=== PATIENT | female | born 1995 | race Caucasian/White ===

== ENCOUNTER 2021-12-12 21:46 | Inpatient (IN) | payer BC, SELFPAY ==
[2021-12-12] VITALS (18 sets, daily range): BP systolic 136–165; BP diastolic 82–97; PULSE 83–110; RESP 16–18; BMI 32.8
[2021-12-12 18:48] LABS: Urine Creatinine 188 mg/dL (28-217)
[2021-12-12 18:54] LABS: UPRO/UCREAT Ratio 0.22 mg/mg CR; Urine Protein Random 41 mg/dL
[2021-12-12 20:33] LABS: Basophils % 0.4 %; Eosinophils # 0.3 10^3/uL (0.0-0.8); Eosinophils % 2.3 %; Hematocrit 36.7 % (37.0-47.0); Hemoglobin 12.3 g/dL (11.5-15.3); Lymphocytes # 1.5 10^3/uL (0.8-4.8); Lymphocytes % 13.3 %; Mean Corpuscular HGB Conc 33.5 g/dL (30.0-36.0); Mean Corpuscular Volume 86.6 fl (81-99); Mean Platelet Volume 11.6 fL (7.4-10.4); Monocytes # 0.9 10^3/uL (0.2-0.9); Monocytes % 7.7 %; Neutrophils # 8.42 10^3/uL (1.8-7.7); Neutrophils % 75.7 %; Nucleated Red Blood Cells % 0 %; Platelet Count 178 10^3/cmm (130-400); Red Blood Count 4.24 10^6/uL (4.1-5.3); Red Cell Distribution Width 13.4 % (12.1-15.1); White Blood Count 11.1 10^3/uL (4.0-10.0)
[2021-12-12] MEDS: dextrose 5%-lactated ringers 1,000 ML 125 ML IV (20:38)
[2021-12-12] MEDS: miSOPROStol 100 mcg tablet 25 MCG VAGINAL (21:00)
[2021-12-12 23:05] LABS: Adenovirus Not Detected (NOT DETECT); Chlamydia Pneumoniae Not Detected (NOT DETECT); Coronavirus 229E,HKU1,NL63,OC4 Not Detected (NOT DETECT); Human Metapneumovirus Not Detected (NOT DETECT); Human Rhinovirus/Enterovirus Not Detected (NOT DETECT); Influenza A Not Detected (NOT DETECT); Influenza A H1 Not Detected (NOT DETECT); Influenza A H1-2009 Not Detected (NOT DETECT); Influenza A H3 Not Detected (NOT DETECT); Influenza B Not Detected (NOT DETECT); Mycoplasma Pneumoniae Not Detected (NOT DETECT); Parainfluenza Virus Type 1 Not Detected (NOT DETECT); Parainfluenza Virus Type 2 Not Detected (NOT DETECT); Parainfluenza Virus Type 3 Not Detected (NOT DETECT); Parainfluenza Virus Type 4 Not Detected (NOT DETECT); Respiratory Syncytial Virus A Not Detected (NOT DETECT); Respiratory Syncytial Virus B Not Detected (NOT DETECT); SARS-COV-2 Not Detected (NOT DETECT)
[2021-12-13] VITALS (176 sets, daily range): BP systolic 98–211; BP diastolic 44–156; PULSE 62–114; RESP 15–18; TEMP 35.9–37.2; O2SAT 95–100
[2021-12-13] MEDS: miSOPROStol 100 mcg tablet 25 MCG VAGINAL (01:36)
[2021-12-13] MEDS: morphine 4 mg/mL SDV 1 mL 8 MG IM (01:37)
[2021-12-13] MEDS: promethazine 25 mg/mL SDV 1 mL IM (01:37)
[2021-12-13] MEDS: dextrose 5%-lactated ringers 1,000 ML 125 ML IV ×2 (04:52→19:44)
[2021-12-13] MEDS: fentaNYL 50 mcg/mL INJ 2mL IVP ×3 (10:31→13:08)
[2021-12-13] MEDS: oxytocin 30 UNIT/500 ML BAG IV (11:00)
[2021-12-13] MEDS: labetalol 5 mg/mL SDV 20mL 20 MG IVP ×2 (12:01→16:33)
[2021-12-13] MEDS: labetalol 5 mg/mL SDV 20mL 40 MG IVP ×2 (12:20→16:45)
--- NOTE | 2021-12-13 13:11 | ANES.PAUD2 ---
Pre-Anesthetic Update Pre-Anesthetic Assessment: Date of Surgery/Procedure: 12/13/21 Any changes to Pre-Anesthetic Assessment?: No Labs Last 48hrs: Short CBC 12/12/21 Range/Units 17:50 WBC 11.1 H (4.0-10.0) 10^3/ uL Hgb 12.3 (11.5-15.3) g/dL Hct 36.7 L (37.0-47.0) % MCV 86.6 (81-99) fl Plt Count 178 (130-400) 10^3/c mm Neut % (Auto) 75.7 % Neut # (Auto) 8.42 H (1.8-7.7) 10^3/u L COVID Results 12/12/21 21:10 Coronavirus 229E ( PCR) Not detected SARS-CoV-2 (PCR) Not detected Vitals: Temperature 98.1 F 12/13/21 11:30 Temperature Source Tympanic 12/13/21 11:30 Pulse Rate 72 12/13/21 13:01 Pulse Rhythm 12/12/21 20:00 Pulse Strength 3+ Normal 12/12/21 20:00 Respiratory Rate 17 12/13/21 13:08 Respiratory Effort 12/13/21 13:08 Respiratory Depth Normal 12/13/21 13:08 Respiratory Patter n 12/13/21 13:08 Blood Pressure 140/81 12/13/21 13:01 Pulse Oximetry 97 12/13/21 05:54 Oxygen Delivery Me thod 12/12/21 20:00 Exam: Pre-Anes Outpt Exam: alert, oriented x 3, clear to auscultation bilaterally and regular rate & rhythm Cardiac Studies: No Data to Display
[2021-12-13] MEDS: lactated ringers 1,000 ML 999 ML IV ×2 (13:17→16:40)
--- NOTE | 2021-12-13 15:05 | ANES.PROC ---
Anesthesia Procedures Procedure/Date: 12/13/21 Epidural: Time Out Performed: Yes Consents Signed: Procedure Consent Consent: from patient Lumbar Level: L4-L5 Epidural position: sitting Epidural procedure: sterile prep of area, 1% lidocaine to numb the area, 18 g needle, negative for paresthesia passed, neg for paresthesia, test dose given, 1.5% xylocaine 1:200k epi (3 ml), placed PCEA, no systemic response, sterile dressing applied and 0.2% Ropiavacaine @ mls/hr (13) Additional Comments: Cap, mask donned by all staff in room. Patient sat up. Patient prepped and draped in usual sterile fashion with Chlorprep. 1% lidocaine skin wheel. Tuohy inserted with stylet. Ligament engaged. Using DAREK w/ saline technique epidural space found, catheter threaded. Positive aspiration. Keeping sterile field catheter flushed with sterile saline. Returning to previously anesthetized site Tuohy inserted with stylet. Ligament engaged. Using DAREK w/ saline technique epidural space found, catheter threaded. Negative aspiration. Test dose 1.5% lidocaine with epinenephrine 1:200,000 total 3 cc. No response. Sterile dressing. Infusion started. Loss at 5 , catheter at 11 . Tolerated well, 1 attempted, good block.
[2021-12-13] MEDS: magnesium sulfate premix 4 GM/100 ML PREMIX IV (16:10)
[2021-12-13 16:11] LABS: Add Urine Microscopic? NO; Charge for UA Resulting for Rev
[2021-12-13 16:16] LABS: Basophils # 0.1 10^3/uL (0.0-0.1); Basophils % 0.4 %; Eosinophils # 0.2 10^3/uL (0.0-0.8); Eosinophils % 1.5 %; Hematocrit 37.1 % (37.0-47.0); Hemoglobin 12.2 g/dL (11.5-15.3); Lymphocytes # 1.3 10^3/uL (0.8-4.8); Lymphocytes % 9.9 %; Mean Corpuscular HGB Conc 32.9 g/dL (30.0-36.0); Mean Corpuscular Hemoglobin 28.8 pg (28.0-34.0); Mean Corpuscular Volume 87.7 fl (81-99); Mean Platelet Volume 11.5 fL (7.4-10.4); Neutrophils # 10.99 10^3/uL (1.8-7.7); Neutrophils % 80.7 %; Nucleated Red Blood Cells % 0 %; Platelet Count 152 10^3/cmm (130-400); Red Blood Count 4.23 10^6/uL (4.1-5.3); Red Cell Distribution Width 13.4 % (12.1-15.1); White Blood Count 13.6 10^3/uL (4.0-10.0)
[2021-12-13 16:25] LABS: Bilirubin Urine Neg (Negative); Blood Urine Neg (Negative); Glucose Urine UA Norm (Normal); Ketones Urine Negative (Negative); Leukocyte Esterase Urine Negative (Negative); Nitrate Urine Negative (Negative); Protein Urine Neg (Negative); Specific Gravity, Urine 1.005 (1.005-1.030); Urine Appearance Clear (CLEAR); Urine Color Straw (Yellow); Urobilinogen Urine Norm (Negative); pH Urine 7 (5-7)
[2021-12-13] MEDS: ondansetron 2 mg/ML SDV 2 mL 4 MG IVP (16:28)
[2021-12-13 16:49] LABS: Urine Creatinine 61 mg/dL (28-217); Urine Protein Random 13 mg/dL
[2021-12-13 16:51] LABS: UPRO/UCREAT Ratio 0.21 mg/mg CR
[2021-12-13 16:56] LABS: Alanine Aminotransferase 27 U/L (0-33); Albumin Level 3.2 g/dL (3.5-5.2); Alkaline Phosphatase 179 IU/L (35-105); Blood Urea Nitrogen 8 mg/dL (6-20); Calcium 8.8 mg/dL (8.5-10.5); Carbon Dioxide 19 mmol/L (22-29); Chloride 106 mmol/L (98-107); Globulin 2.8 g/dL (1.3-4.6); Glomerular Filtration Rate 149.1 mL/min (90-130); Glucose 89 mg/dL (65-115); Osmolality Calculated 280 mOsm/kg (285-295); Sodium 136 mmol/L (136-145); Total Bilirubin 0.2 mg/dL (0.15-1.2); Uric Acid 3.9 mg/dL (2.4-5.7)
[2021-12-13 16:58] LABS: Anion Gap 15.4 (5-19); Aspartate Amino Transferase 27 U/L (0-32); Potassium 4.4 mmol/L (3.5-5.1)
[2021-12-13] MEDS: citric acid-sodium citrate 30 mL UDC PO (16:58)
[2021-12-13] MEDS: metoclopramide 5 mg/mL SDV 2 mL 10 MG IVP (16:59)
[2021-12-13] MEDS: famotidine 20 mg/2 mL INJ IVP (16:59)
[2021-12-13] MEDS: magnesium sulfate premix 20 GM/500 ML BAG IV (16:59)
--- NOTE | 2021-12-13 17:49 | P.ANESASSM_ITS ---
Pre-Anesthetic Assessment Height/Weight: Height 1.6 m Weight 83.915 kg Temp Pulse Resp BP Pulse Ox 96.6 F L 103 H 17 174/100 100 12/13/21 16:18 12/13/21 16:59 12/13/21 16:14 12/13/21 16:59 12/13/21 16:59 emergency c section for decles with pre eclampsia w/ severe features Anesthetic Plan ASA status: 2E Other: Late entry due to emergency circumstances Medications/Allergies Allergies Allergy/AdvReac Type Severity Reaction Status Date / Time No Known Allergies Allergy Verified 12/13/21 11:57 Current Medications Generic Name Dose Route Start Last Admin Trade Name Freq PRN Reason Stop Dose Admin Fentanyl 25 - 100 mcg 12/12/21 18:58 12/13/21 13:08 Fentanyl 50 Mcg/Ml Inj 2ml IVP 75 mcg Q1H PRN Administration SEVERE PAIN Dextrose/Lactated Ringer's 1,000 mls @ 125 mls/hr 12/12/21 19:00 12/13/21 04:52 Dextrose 5%-Lactated Ringers IV 125 mls/hr .Q8H AJ Administration Lactated Ringer's 1,000 mls @ 999 mls/hr 12/12/21 18:58 12/13/21 16:40 Lactated Ringers IV 999 mls/hr .Q1H1M PRN Administration Per L&D Rescitation Protocol Oxytocin 30 unit in 500 mls @ 1 mls/hr 12/13/21 10:45 12/13/21 16:15 Pitocin IV 11 milliunit/min .Q24H AJ 11 mls/hr Titration Protocol 1 MILLIUNIT/MIN Ropivacaine 200 mg in 100 mls @ 13 mls/hr 12/13/21 12:30 12/13/21 13:36 Naropin Premix EPIDURAL 13 mls/hr .Q7H42M AJ Administration Lactated Ringer's 1,000 mls @ 999 mls/hr 12/13/21 12:25 12/13/21 13:17 Lactated Ringers IV 999 mls/hr .Q1H1M PRN Administration See label comments Magnesium Sulfate 20 gm in 500 mls @ 50 mls/hr 12/13/21 15:45 12/13/21 16:59 Magnesium Sulfate Premix IV 50 mls/hr .Q10H AJ Administration Labetalol HCl 20 mg 12/13/21 11:55 12/13/21 16:33 Labetalol 5 Mg/Ml Sdv 20ml IVP 20 mg PRN PRN Administration HYPERTENSION Protocol Labetalol HCl 40 mg 12/13/21 11:55 12/13/21 16:45 Labetalol 5 Mg/Ml Sdv 20ml IVP 40 mg PRN PRN Administration HYPERTENSION Protocol Ondansetron HCl 4 mg 12/12/21 18:58 12/13/21 16:28 Ondansetron 2 Mg/Ml Sdv 2 Ml IVP 4 mg Q4H PRN Administration NAUSEA AND VOMITING PFSH Anesthesia Female Reproductive History : 1 Data Anesthesia : 12/13/21 15:40 12/13/21 15:40 Short CBC 12/12/21 12/13/21 Range/Units 17:50 15:40 WBC 11.1 H 13.6 H (4.0-10.0) 10^3/uL Hgb 12.3 12.2 (11.5-15.3) g/dL Hct 36.7 L 37.1 (37.0-47.0) % MCV 86.6 87.7 (81-99) fl Plt Count 178 152 (130-400) 10^3/cmm Neut % (Auto) 75.7 80.7 % Neut # (Auto) 8.42 H 10.99 H (1.8-7.7) 10^3/uL BMP 12/13/21 15:40 Sodium 136 Potassium 4.4 Chloride 106 Carbon Dioxide 19 L BUN 8 Creatinine 0.5 Glucose 89 Calcium 8.8 Liver Function 12/13/21 Range/Units 15:40 Total Bilirubin 0.2 (0.15-1.2) mg/dL AST 27 (0-32) U/L ALT 27 (0-33) U/L Alkaline Phosphatase 179 H (35-105) IU/L Albumin 3.2 L (3.5-5.2) g/dL Urine 12/13/21 Range/Units 15:40 Urine Color Straw (Yellow) Urine Appearance Clear (CLEAR) Urine pH 7 (5-7) Ur Specific [place] 1.005 (1.005-1.030) Urine Protein Neg (Negative) Urine Glucose (UA) Norm (Normal) Urine Ketones Negative (Negative) Urine Nitrate Negative (Negative) Urine Bilirubin Neg (Negative) Ur Leukocyte Esterase Negative (Negative) COVID Results 12/12/21 21:10 Coronavirus 229E (PCR) Not detected SARS-CoV-2 (PCR) Not detected Cardiac Studies: No Data to Display
--- NOTE | 2021-12-13 17:51 | ANES.PROC ---
Anesthesia Procedures Procedure/Date: 12/13/21 Time out 1710 Procedure Narrative: Patient in sitting position. Full monitors, simpe mask 10 LPM. Time out. Cap, mask donned by all staff present. Sterile prep w/ Chlorprep. Drape. 1% lidocaine skin wheel. Introducer. 25 g Pencan, + birefringence, no heme. 1.6 ml 0.75% bupivacaine w/ dextrose with 0.2 mg PF morphine and 20 mcg PF fentanyl. Tolerated well. Good block.
--- NOTE | 2021-12-13 18:46 | PM.OPHPUD ---
Labor & Delivery H&P Update Date of Procedure: December 13, 2021 Date H&P Performed: 12/12/21 Changes to previous documentation: None Admission Diagnosis: Primary indication for procedure: 26-year-old one at 38 weeks estimated gestational age presented to the hospital for induction due to gestational hypertension Planned procedure: Spontaneous vaginal delivery Other information: The patient is a otherwise healthy 26-year-old female who presented to the hospital due to having elevated blood pressures. In the office she was found to have systolic blood pressures greater than 140. She was sent to the hospital where she was also found to have systolic blood pressures greater than 140. Her protein creatinine ratio was found to be negative. She was having no other significant symptoms of preeclampsia. She was induced with Cytotec. Her had otherwise been relatively unremarkable. Her labs were as follows her blood type was B+. Her antibody screen was negative. Her glucose screen was negative. She is rubella immune. Her Tdap was performed. Her GBS status was negative as well. The remainder of her labs were within normal limits. Related Problem List Diagnoses (1) 38 weeks gestation of : (2) Gestational hypertension:
--- NOTE | 2021-12-13 18:49 | P.OP_ITS ---
Operative Report Date of procedure: December 13, 2021 Pre-op diagnosis: 1. 26-year-old one at 38 weeks estimated gestational age 2. Failure to progress 3. Preeclampsia Post-op diagnosis: Same Procedure done: Low transverse section Specimens removed/disposition: 1. Male infant with a weight of 5 pounds 13 ounces and Apgars of 6 and 9 2. Placenta with a three-vessel cord delivered intact Pathology: None Surgeon: Reji Lindquist Estimated blood loss: 600 Complications: None Brief History: The patient presented to the hospital the night prior to the . She was induced because of gestational hypertension. Despite having Cytotec x2, and amniotomy, Pitocin, she made no change for 12 hours. In addition she was having increasingly worsening blood pressures that required labetalol. Magnesium was initiated. Due to her lack of progress, the decision was made to proceed with a section Procedure: The patient was brought back to the operating room where she was prepped and draped in usual sterile fashion. Anesthesia was found to be adequate. 20 cc of 0.5 bupivacaine were infused into the site of the incision. lower transverse skin incision was then made with a #10 blade. I then dissected down to the underlying subcutaneous tissue until arriving at the prerectal fascia. The fascia was then nicked with the scalpel bilaterally. The fascial incisions were then carried laterally with Basurto scissors. Attention was then turned to the superior aspect of the incision which was grasped with kochers and tented up away from the underlying rectus abdominis muscles. The muscles were then dis sected away from the fascia manually, and later with Basurto scissors. Attention was then turned to the inferior aspect of the incision, and the fascia was dissected away from the underlying muscle in similar fashion. The rectus abdominis muscles were then spread manually. The peritoneum was entered manually. Excellent visualization of the uterus was noted. A lower transverse uterine incision was then made with a #10 blade. Upon arriving at the intrauterine cavity, the uterine incision was then extended manually. The was noted to be in vertex position. The baby was delivered without difficulty. After delivery of the head, the mouth and nose were suctioned at the site of the incision. There was no meconium. There was no nuchal cord. The baby was then delivered and placed on the abdomen. The cord was cut and clamped. The baby was then handed to Dr. Su and nurse who were waiting The placenta was removed intact. The uterus was externalized. The intrauterine cavity was cleansed of any remaining debris. The uterine incision was reapproximated in 2 layers. The first layer was performed with 0 Vicryl in a running locked stitch. The second layer was an imbricating stitch also using 0 Vicryl. The uterus was replaced into the abdomen. The peritoneum was then irrigated with warm saline. I reexamined the uterine incision and found it to be hemostatic. The rectus abdominis muscles were then reapproximated using 0 Vicryl in a running stitch. The fascia was then reapproximated using 0 Vicryl in running stitch. The subcutaneous tissue was then reapproximated using 0 Vicryl. The skin was reapproximated using addie. A sterile dressing was placed. All counts were correct x2. Both the mother and baby were in stable condition.
--- NOTE | 2021-12-13 19:45 | PC.NURSE ---
Anesthesia removed epidural in OR prior to spinal.
--- NOTE | 2021-12-13 20:42 | ANE.PACU2 ---
Inpatient post-anesthesia follow up: Airway intact: Yes Vital signs: Temperature 96.6 F Pulse Rate 103 Respiratory Rate 17 Blood Pressure 174/100 Pulse Oximetry 100 Oxygen Delivery Me thod Room Air Oxygen Flow Rate Fraction of Inspir ed Oxygen Hydration adequate: Yes Nausea and vomiting: No Pain level: 5 Mental status: Baseline
[2021-12-14] VITALS (22 sets, daily range): BP systolic 113–143; BP diastolic 72–98; PULSE 76–99; RESP 16–18; TEMP 36.7–36.9; O2SAT 94–98
[2021-12-14] MEDS: magnesium sulfate premix 20 GM/500 ML BAG IV ×2 (02:45→13:06)
[2021-12-14] MEDS: morphine 4 mg/mL SDV 1 mL IVP (04:24)
[2021-12-14 05:33] LABS: Basophils % 0.3 %; Eosinophils # 0.1 10^3/uL (0.0-0.8); Eosinophils % 0.5 %; Hematocrit 33.2 % (37.0-47.0); Hemoglobin 10.9 g/dL (11.5-15.3); Lymphocytes % 8.5 %; Mean Corpuscular HGB Conc 32.8 g/dL (30.0-36.0); Mean Corpuscular Hemoglobin 28.8 pg (28.0-34.0); Mean Corpuscular Volume 87.8 fl (81-99); Monocytes # 0.8 10^3/uL (0.2-0.9); Neutrophils # 10.01 10^3/uL (1.8-7.7); Neutrophils % 83.4 %; Nucleated Red Blood Cells % 0 %; Platelet Count 149 10^3/cmm (130-400); Red Blood Count 3.78 10^6/uL (4.1-5.3); Red Cell Distribution Width 13.9 % (12.1-15.1)
--- NOTE | 2021-12-14 06:49 | PM.OBGYPN ---
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 She will be continued on magnesium until 24 hours . Her urine output has been appropriate. Her bleeding has been minimal. Her pain is been reasonably well controlled. She is breast-feeding well. Labor: Station: -3 Amniotic Membrane Status: Leaking Monitor Mode: Palpation Contraction Pattern: Regular Status: Category I Vitals/I&O/Wt Last Vital Signs Temp 98.5 F 12/14/21 05:39 Pulse 90 12/14/21 05:39 Resp 16 12/14/21 05:39 BP 121/77 12/14/21 05:39 Pulse Ox 96 12/14/21 05:39 12/13/21 12/13/21 12/14/21 14:59 22:59 06:59 Intake Total 14.50 / 14.50 4028.50 / 4043.00 Output Total 1940 / 1940 1285 / 3225 Balance 14.50 / 14.50 2088.50 / 2103.00 -1285 / 818.00 Weight last 48 hrs Weight 185 lb Weight 185 lb Physical Exam Narrative: The patient is alert. She appears comfortable. Her heart has a regular rate and rhythm with no murmurs appreciated. Lungs are clear to auscultation bilaterally. Her fundus is firm and below the umbilicus. Urinary Catheter Management: Srinivasan: Cath Placed During This Visit: yes Reason for Continuing Indwelling Catheter: Accurate Measurement of Urinary Output in Critically Ill Patients Urinary Catheter Date of Insertion: 12/13/21 Urinary Catheter Time of Insertion: 14:30 Data : 12/14/21 05:22 12/13/21 15:40 A&P Assessment and plan (1) Preeclampsia: She will be continued on magnesium for 24 hours post . Overall she is seems to be doing better. Her urine output has been appropriate. Status: Acute (2) 38 weeks gestation of : Status: Acute (3) Status post : Status: Acute Attestations Medical Necessity Statement*: I anticipate the patient will be going home in 1 to 2 days due to her post status and her preeclampsia. Coding Level of Care Code Acute Ultrasound Specialist for [facility] Kranthi Diagnoses Preeclampsia O14.90 38 weeks gestation of Z3A.38 Status post Z98.891
[2021-12-14] MEDS: HYDROcodone-acetaminophen 5-325 mg Tablet PO ×4 (07:55→20:01)
[2021-12-14] MEDS: dextrose 5%-lactated ringers 1,000 ML 75 ML IV (10:39)
[2021-12-14] MEDS: ondansetron 2 mg/ML SDV 2 mL 4 MG IVP (10:39)
--- NOTE | 2021-12-14 14:22 | PC.NURSE ---
Sat pt up in bed and instructed on how to use incentive spirometer. Pt had some expiratory wheezing and crackles in left lower lobe. O2 sat is 93%. Fist 3 repetitions volume was 1000mL. Instructed pt she should breathe deeper. Pt reached 2000 with next 3 repetitions. Pt had urge to cough but again refused. Nurse instructed pt that is is important to cough to prevent pneumonia. Splinted pt abdomen with pillow, pt shallow coughed. O2 went from 93% to 98% with deep breaths. Pt pulse did increase as well from 90s to low 100s. Instructed pt to use every hour. Pt verbalized understanding.
[2021-12-14] MEDS: acetaminophen 325 mg Tablet 650 MG PO (20:43)
[2021-12-15] MEDS: HYDROcodone-acetaminophen 5-325 mg Tablet PO ×4 (01:19→12:33)
[2021-12-15 04:30] VITALS: BP 142/85; PULSE 85; TEMP 36.6; O2SAT 97
[2021-12-15 08:00] VITALS: BP 156/104; PULSE 99; RESP 16; TEMP 36.8; O2SAT 96
[2021-12-15] MEDS: prenatal vitamin Capsule 1 CAP PO (08:17)
[2021-12-15] MEDS: docusate sodium 100 mg Capsule PO (08:17)
[2021-12-15 08:30] VITALS: BP 165/90; PULSE 85; RESP 16; O2SAT 96
[2021-12-15] MEDS: labetalol 200 mg Tablet 100 MG PO (09:24)
--- NOTE | 2021-12-15 09:46 | PM.OBGYDC ---
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 She was placed on Cytotec. An amniotomy was performed. Pitocin was initiated. Her blood pressure was intermittently elevated during her hospital stay. Her cervix did not change for about 12 hours. During that time her blood pressure became progressively more elevated. She started feeling worse and started having a headache. As result the decision was made to place the patient on magnesium and to proceed with a section. The was unremarkable. The patient's course was remarkable for not tolerating magnesium well. She was passing gas within about 24 hours. She continued to have a mild to moderate headache. She tolerated her diet well. She continued to have some elevated blood pressures, and oral labetalol was initiated. Information Peripartum Data: Infant Delivery Method: Physical Exam Narrative: She is in no acute distress The patient continues to be somewhat swollen. She does have trace to 1+ swelling in her lower extremities. Lungs are clear auscultation bilaterally Her heart has a regular rate and rhythm Her fundus is below the umbilicus and firm Her dressing is clean, dry and intact Her extremities have trace edema Urinary Catheter Management: Srinivasan: Cath Placed During This Visit: yes, but has since been removed by the nurse Reason for Continuing Indwelling Catheter: Accurate Measurement of Urinary Output in Critically Ill Patients Urinary Catheter Date of Insertion: 12/13/21 Urinary Catheter Time of Insertion: 14:30 Date Urinary Catheter Removed: 12/15/21 Time Urinary Catheter Discontinued: 01:20 Discharge Data Studies Completed and Pending Laboratory Results WBC 12.0 10^3/uL (4.0-10.0) H 12/14/21 05:22 RBC 3.78 10^6/uL (4.1-5.3) L 12/14/21 05:22 Hgb 10.9 g/dL (11.5-15.3) L 12/14/21 05:22 Hct 33.2 % (37.0-47.0) L 12/14/21 05:22 MCV 87.8 fl (81-99) 12/14/21 05:22 MCH 28.8 pg (28.0-34.0) 12/14/21 05:22 MCHC 32.8 g/dL (30.0-36.0) 12/14/21 05:22 RDW 13.9 % (12.1-15.1) 12/14/21 05:22 Plt Count 149 10^3/cmm (130-400) 12/14/21 05:22 MPV 11.0 fL (7.4-10.4) H 12/14/21 05:22 Neut % (Auto) 83.4 % 12/14/21 05:22 Lymph % (Auto) 8.5 % 12/14/21 05:22 [place] % (Auto) 7.0 % 12/14/21 05:22 Eos % (Auto) 0.5 % 12/14/21 05:22 Baso % (Auto) 0.3 % 12/14/21 05:22 Neut # (Auto) 10.01 10^3/uL (1.8-7.7) H 12/14/21 05: Lymph # (Auto) 1.0 10^3/uL (0.8-4.8) 12/14/21 05:22 [place] # (Auto) 0.8 10^3/uL (0.2-0.9) 12/14/21 05:22 Eos # (Auto) 0.1 10^3/uL (0.0-0.8) 12/14/21 05:22 Baso # (Auto) 0.0 10^3/uL (0.0-0.1) 12/14/21 05:22 Nucleated RBC % (auto) 0 % 12/14/21 05: Nucleated RBCs # 0.0 /100WBC 12/14/21 05:22 Sodium 136 mmol/L (136-145) 12/13/21 15:40 Potassium 4.4 mmol/L (3.5-5.1) 12/13/21 15:40 Chloride 106 mmol/L (98-107) 12/13/21 15:40 Carbon Dioxide 19 mmol/L (22-29) L 12/13/21 15:40 Anion Gap 15.4 (5-19) 12/13/21 15:40 BUN 8 mg/dL (6-20) 12/13/21 15:40 Creatinine 0.5 mg/dL (0.5-0.9) 12/13/21 15:40 GFR Calculation 149.1 mL/min (90-130) H 12/13/21 15:40 Glucose 89 mg/dL (65-115) 12/13/21 15:40 Calculated Osmolality 280 mOsm/kg (285-295) L 12/13/21 15:40 Uric Acid 3.9 mg/dL (2.4-5.7) 12/13/21 15:40 Calcium 8.8 mg/dL (8.5-10.5) 12/13/21 15:40 Total Bilirubin 0.2 mg/dL (0.15-1.2) 12/13/21 15:40 AST 27 U/L (0-32) 12/13/21 15:40 ALT 27 U/L (0-33) 12/13/21 15:40 Alkaline Phosphatase 179 IU/L (35-105) H 12/13/21 15:40 Total Protein 6.0 g/dL (6.6-8.7) L 12/13/21 15:40 Albumin 3.2 g/dL (3.5-5.2) L 12/13/21 15:40 Globulin 2.8 g/dL (1.3-4.6) 12/13/21 15:40 Urine Color Straw (Yellow) 12/13/21 15:40 Urine Appearance Clear (CLEAR) 12/13/21 15:40 Urine pH 7 (5-7) 12/13/21 15:40 Ur Specific [place] 1.005 (1.005-1.030) 12/13/21 15:40 Urine Protein Neg (Negative) 12/13/21 15:40 Urine Glucose (UA) Norm (Normal) 12/13/21 15:40 Urine Ketones Negative (Negative) 12/13/21 15:40 Urine Blood Neg (Negative) 12/13/21 15:40 Urine Nitrate Negative (Negative) 12/13/21 15:40 Urine Bilirubin Neg (Negative) 12/13/21 15:40 Urine Urobilinogen Norm mg/dL (Negative) 12/13/21 15:40 Ur Leukocyte Esterase Negative (Negative) 12/13/21 15:40 U Random Total Protein 13 mg/dL 12/13/21 15:40 Urine Creatinine 61 mg/dL (28-217) 12/13/21 15:40 Protein/Creatinin Ratio 0.21 mg/mg CR 12/13/21 15:40 Coronavirus 229E (PCR) Not detected (NOT DETECT) 12/12/21 21:10 SARS-CoV-2 (PCR) Not detected (NOT DETECT) 12/12/21 21:10 Procedures Performed Lower transverse section Vitals Last Vital Signs Temp 97.9 F 12/15/21 04:30 Pulse 85 12/15/21 04:30 Resp 16 12/14/21 18:30 BP 142/85 12/15/21 04:30 Pulse Ox 97 12/15/21 04:30 Discharge Plan Discharge Patient Disposition: Home Condition: Stable Prescriptions: New labetalol 200 mg Tablet 100 mg PO BID Qty: 60 0RF hydrocodone-acetaminophen 5-325 mg Tablet 1 - 2 tab PO Q4H PRN (Reason: Moderate To Severe Pain) Qty: 28 0RF -U 106.5-1 mg Capsule 1 cap PO BREAKFAST Qty: 90 2RF Percocet 10-325 mg tablet 1 tab PO Q6H Qty: 30 0RF Discharge Orders: Discharge Order (Routine); Ordered 12/15/21 Ordered By: Reji Lindquist Referrals: Reji Lindquist MD [Primary Care Provider] - 4-7 days (Please call [facility] on 12/16/21 to schedule a 4-7 day incision check.) Discharge Diet: Advance as tolerated Discharge Activity: Limit activity as instructed Patient Instructions: How to Take Your Blood Pressure, Labetalol (By mouth), Hydrocodone/Acetaminophen (By mouth) (Vicodin, [place], Lortab), Depression (DC), Bleeding (DC), COVID-19 and (GEN), OB - Lexa/Kathe, OB Discharge Report, OB Food/Drug Interaction Guide, OB Care at Home, Opioid Safety, OB Home Care Discharge 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
[2021-12-15 10:00] VITALS: BP 142/95; PULSE 78; RESP 16; O2SAT 97
[2021-12-15 15:45] VITALS: BP 131/81; PULSE 78; RESP 16; TEMP 36.7; O2SAT 98
[2021-12-15 15:55] VITALS: BP 131/81; PULSE 78; RESP 16; TEMP 36.7; O2SAT 98
== END 2021-12-15 15:55 | disposition home or self-care (01) | DRG 788 ==
LOC: OPOB 12-13 09:25
PROVIDERS: Admitting Provider Family Medicine; PCP Family Medicine; Visit Provider Family Medicine
PROC: 10D00Z1 Extraction of Products of Conception, Low, Open Approach (ICD-10-PCS; CPT 59514; principal; 2021-12-13 17:00)
DX: O14.14 Severe pre-eclampsia complicating childbirth (principal); Z3A.38 38 weeks gestation of pregnancy; Z37.0 Single live birth; O61.0 Failed medical induction of labor
CPT/HCPCS: 12345; 36415; 51702; 59025; 59409; 80053; 81003; 82570; 84156; 84550; 85025; 87635; 96372; 96374; 96376; 99211; J2270; J2274; J2370; J2405; J2550; J2765; J2795; J3010; J3475; J3490

== ENCOUNTER 2021-12-17 10:40 | Outpatient (CLI) | payer BC, SELFPAY ==
[2021-12-17] VITALS (27 sets, daily range): BP systolic 126–169; BP diastolic 79–94; PULSE 63–87; O2SAT 95–98; BMI 29.7
--- NOTE | 2021-12-17 11:33 | P.MISC_ITS ---
Miscellaneous Note Purpose of Documentation: PDPH Note: Patient is 26 yo F who presents w/ classic symptoms of positional headache after epidural and spinal on 12/13/21. Patient has hx of thoracolumbar fusion w/ abel rods for scoliosis. Per documentation, She received uneventful epidural which provided adequate labor analgesia. She required C- section and the epidural was removed and a spinal was placed using a 25g pencan. This was also uneventful. Today patient presents for discussion for blood patch. I informed her of her increased risk of repeat postdural puncture and difficult placement given her hx of fusion, as well as unknown risk of infection associ ated w/ abel rods and injection of heme. Certainly heme is more likely to result in infection than injection of bupivicaine given bupivicaine's bacteriostatic properties, but the likelihood of hardware infection is unknown. Patient became tearful after hearing these risks discussed again. After discussion of the risks patient decided to decline blood patch at this time, due to fear of infection and possibility of second dural puncture occurring. She was informed headaches last on average 7 to 14 days and that if she were to change her mind we can proceed with blood patch at a later time and date. Since patient is here, we will given aminophylline IV infusion to help ameliorate symptoms, as we do not have caffeine on formulary. Patient was informed that the headache will likely return after amiophylline wears off. Discussed dosing w/ pharmacist. Will give 1.5 mg/kg IV in a 250 cc NS bag.
[2021-12-17] MEDS: ondansetron 2 mg/ML SDV 2 mL 4 MG IVP (11:56)
--- NOTE | 2021-12-17 13:58 | PC.NURSE ---
after infusion of aminophylline pt sat up slowly and reported to be feeling better, after standing up pt reported to be feeling much better.
--- NOTE | 2021-12-17 14:00 | PC.NURSE ---
pt verbalized understanding of discharge instructions
== END 2021-12-17 14:05 | disposition home or self-care (01) ==
LOC: OPOB 10:43 → OBGYN 10:44
PROVIDERS: PCP Family Medicine; Visit Provider Family Medicine
DX: O89.4 Spinal and epidural anesthesia-induced headache during the puerperium (principal)
CPT/HCPCS: J0280; J2405; J7050

== ENCOUNTER 2022-11-09 07:15 | Outpatient (CLI) | payer BC, SELFPAY ==
--- NOTE | 2022-11-09 | US_ITS ---
WS: [id number] OBSTETRICAL ULTRASOUND COMPLETE HISTORY: OB COMPLETE COMPARISON: None available. Single intrauterine gestation in Cephalic presentation. Cervix is Closed and normal length. Cervical length is 3.6 cm. Normal amount of amniotic fluid surrounds the fetus. Placenta: Anterior, no previa or abruption. Placenta grade 1 Heart: 147 BPM. Four chambers are identified. RIGHT and LEFT outflow tracts are unremarkable. Anatomy: Very small choroid plexus cyst on the RIGHT. Typically of no significance as an isolated fin ding. May resolve during the second trimester. The remaining intracranial structures and spine are ne gative. kidneys, stomach and urinary bladder are unremarkable. Abdominal wall, three-vessel cor d and cord insertion site are normal. 4 extremities are present. profile: Unremarkable. Gender: Small soft tissue protuberance in the expected location of the genitalia. No scrotum is ident ified. By blood work expected female gender. measurements: BPD = 5.3 cm = 22w2d HC = 20.4 cm = 22w4d AC = 17.3 cm = 22w2d FL = 4.2 cm = 23w3d EFW: 532 g. Biometry is internally concordant. AGA by ultrasound: 22w5d MADHURI by ultrasound: 03/10/2023 US/US OB >= 14 weeks fetus [id number] IMPRESSION: 1. Single intrauterine gestation of 22w5d with an MADHURI of 03/10/2023. 2. Small RIGHT choroid plexus cyst. 3. Ambiguous genitalia. Very small protuberance soft tissues which may represe nt hypospadia. Scrotal sac is not identified. By previous blood work female danielle yotype expected. 4. No additional abnormality.
== END 2022-11-09 07:16 | disposition home or self-care (01) ==
PROVIDERS: PCP Family Medicine; Visit Provider Family Medicine
DX: Z34.82 Encounter for supervision of other normal pregnancy, second trimester (principal)
CPT/HCPCS: 76805

== ENCOUNTER 2023-02-26 04:55 | Inpatient (IN) | payer BC, SELFPAY ==
--- NOTE | 2023-02-12 15:59 | ANES.PREANE2 ---
Pre-Anesthetic Assessment Height/Weight: Height 1.6 m Operation Date: 02/26/23 07:20 Proposed Procedures p Section Repeat(Not Applicable) - Reji Lindquist MD Familial anesthetic complications: H/O spinal H/A with last epidural/SAB Was Beta Robert taken within 24 hours: Yes Was Clonidine taken within 24 hours: N/A Social No alcohol and No tobacco Exam alert, oriented x 3, clear to auscultation bilaterally and regular rate & rhythm Airway Submandibular: within normal limits Cervical ROM: within normal limits Mallampati: Class II Dentition: full CV/HEM PIH Anesthetic Plan ASA status: 2 Anesthesia: Regional (specify below) (SAB) Other: Repeat C/S Medications/Allergies Home Medications Medication Instructions Recorded Confirmed Last Taken Type hydrocodone 5 mg-acetaminophen 325 1 - 2 tab PO Q4H PRN Moderate To 12/15/21 Unknown Rx mg tablet Severe Pain #28 tabs labetalol 200 mg tablet 100 mg PO BID #60 tabs 12/15/21 Unknown Rx multivitamin no.51-ferrous 1 cap PO BREAKFAST #90 caps 12/15/21 Unknown Rx fumarate 106.5 mg-folic acid 1 mg capsule (-U) oxycodone-acetaminophen 10 mg-325 1 tab PO Q6H #30 tabs 12/17/21 Unknown Rx mg tablet (Percocet) Allergies Allergy/AdvReac Type Severity Reaction Status Date / Time No Known Allergies Allergy Verified 12/13/21 11:57 Data Anesthesia Cardiac Studies: No Data to Display
[2023-02-26] VITALS (43 sets, daily range): BP systolic 103–132; BP diastolic 54–77; PULSE 65–98; RESP 16–18; TEMP 36.1–36.7; O2SAT 95–98; BMI 30.6
--- NOTE | 2023-02-26 05:13 | PM.OBGYHP ---
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 The patient has had an unremarkable . There have been no complications. We discussed options with the patient including the option of a trial of labor after section. We discussed the risks and benefits of each option. The patient decided to proceed with a scheduled repeat section. The patient's labs have been unremarkable as well. Her blood type is B+ her antibody screen is negative. She passed her glucose screen. Her GBS status is negative. She is rubella immune. She received her Tdap. The remainder of her infectious disease profile is within normal limits. Review of Systems General: Reports: 10 or more systems reviewed and unremarkable except in HPI and below Const: Reports: fatigue; Denies: fever(s) Eyes: Denies: change in vision Card: Denies: chest pain Musc: Reports: back pain Ry/Lymph: Denies: easy bruising Medications/Allergies Home Medications Medication Instructions Recorded Confirmed Last Taken Type multivitamin no.51-ferrous 1 cap PO BREAKFAST #90 caps 12/15/21 Unknown Rx fumarate 106.5 mg-folic acid 1 mg capsule (-U) escitalopram oxalate 5 mg tablet 5 mg PO DAILY 02/26/23 02/26/23 Unknown History Allergies Allergy/AdvReac Type Severity Reaction Status Date / Time No Known Allergies Allergy Verified 12/13/21 11:57 Physical Exam Const: COMMON NORMALS: patient oriented x3 and alert HENMT: COMMON NORMALS: moist oral mucous membranes HEAD & SCALP: normal to inspection Chest: COMMONS NORMALS: normal inspection of the chest Resp: COMMON NORMALS: clear to auscultation bilaterally AUSCULTATION: clear to auscultation bilaterally Cardio: COMMON NORMALS: regular rate and regular rhythm RATE: regular rate RHYTHM: regular rhythm GI: INSPECTION: Yes normal to inspection and Yes other (Gravid) Extremity: COMMON NORMALS: normal to inspection GENERAL: Yes edema (Trace) Neuro: COMMON NORMALS: patient oriented x3, moves all extremities and no sensory deficits noted SENSORIUM/ORIENTATION: Yes alert Psych: COMMON NORMALS: mental status grossly normal Skin: COMMON NORMALS: no rashes or lesions noted GENERAL SKIN EXAM: no rashes or lesions noted A&P Assessment and plan (1) 39 weeks gestation of : (2) History of : Proceed with a repeat scheduled . We have previously discussed the risks of a including the risks of bleeding, infection, and damage intra-abdominal organs. She and her have no further questions and wished to proceed. (3) Anxiety with depression: Currently taking escitalopram. We will continue after delivery of the baby. Attestations Medical Necessity Statement*: I anticipate a , and routine post care. Coding Level of Care Code Acute Code for Chg Fwd Diagnoses 39 weeks gestation of Z3A.39 History of Z98.891 Anxiety with depression F41.8
[2023-02-26 05:45] LABS: Basophils # 0.1 10^3/uL (0.0-0.1); Basophils % 0.5 %; Eosinophils # 0.2 10^3/uL (0.0-0.8); Eosinophils % 1.9 %; Hematocrit 34.6 % (37.0-47.0); Hemoglobin 11.3 g/dL (11.5-15.3); Lymphocytes # 1.7 10^3/uL (0.8-4.8); Lymphocytes % 17.2 %; Mean Corpuscular HGB Conc 32.7 g/dL (30.0-36.0); Mean Corpuscular Hemoglobin 27.6 pg (28.0-34.0); Mean Corpuscular Volume 84.6 fl (81-99); Mean Platelet Volume 10.8 fL (7.4-10.4); Monocytes # 0.8 10^3/uL (0.2-0.9); Monocytes % 8.3 %; Neutrophils # 6.86 10^3/uL (1.8-7.7); Neutrophils % 71.2 %; Nucleated Red Blood Cells % 0 %; Platelet Count 196 10^3/cmm (130-400); Red Blood Count 4.09 10^6/uL (4.1-5.3); Red Cell Distribution Width 13.2 % (12.1-15.1); White Blood Count 9.6 10^3/uL (4.0-10.0)
[2023-02-26] MEDS: lactated ringers 1,000 ML 999 ML IV (05:51)
[2023-02-26] MEDS: citric acid-sodium citrate 30 mL UDC PO (06:53)
[2023-02-26] MEDS: metoclopramide 5 mg/mL SDV 2 mL 10 MG IVP (06:53)
[2023-02-26] MEDS: famotidine 20 mg/2 mL INJ IVP (06:54)
--- NOTE | 2023-02-26 07:31 | ANES.PAUD2 ---
Pre-Anesthetic Update Pre-Anesthetic Assessment: Date of Surgery/Procedure: 02/26/23 Proposed Procedure: Operation Date: 02/26/23 07:20 Proposed Procedures p Section Repeat(Not Applicable) - Reji Lindquist MD Any changes to Pre-Anesthetic Assessment?: No Last Intake: Intake Last Liquid Date 02/25/23 Last Liquid Time 20:00 Last Solid Date 02/25/23 Last Solid Time 18:00 Labs Last 48hrs: Short CBC 02/26/23 Range/Units 05:36 WBC 9.6 (4.0-10.0) 10^3/ uL Hgb 11.3 L (11.5-15.3) g/dL Hct 34.6 L (37.0-47.0) % MCV 84.6 (81-99) fl Plt Count 196 (130-400) 10^3/c mm Neut % (Auto) 71.2 % Neut # (Auto) 6.86 (1.8-7.7) 10^3/u L Vitals: Temperature 97.7 F 02/26/23 05:52 Pulse Rate 93 02/26/23 06:52 Pulse Rhythm Regular 02/26/23 06:02 Pulse Strength 3+ Normal 02/26/23 06:02 Respiratory Rate 16 02/26/23 05:17 Respiratory Effort Spontaneous, Non- Labored, Easy 02/26/23 06:02 Respiratory Depth Normal 02/26/23 06:02 Respiratory Patter n Normal 02/26/23 06:02 Blood Pressure 132/73 02/26/23 06:52 Oxygen Delivery Me thod Room Air 02/26/23 06:02 Exam: Pre-Anes Outpt Exam: alert, oriented x 3, clear to auscultation bilaterally and regular rate & rhythm Cardiac Studies: No Data to Display
--- NOTE | 2023-02-26 08:14 | PM.OP ---
Operative Report Date of procedure: February 26, 2023 Pre-op diagnosis: 28-year-old 2 at 39 weeks estimated gestational age presenting for repeat section Post-op diagnosis: Status post lower transverse section Procedure done: Lower transverse section Specimens removed/disposition: 1. Male with a weight of 6 pounds 5 ounces and Apgars of 8 and 9 2. Placenta with a three-vessel cord delivered intact Surgeon: Reji Lindquist Estimated blood loss (mL): 400 Complications: None Procedure: The patient was brought back to the operating room where she was prepped and draped in usual sterile fashion. Anesthesia was found to be adequate. A lower transverse skin incision was then made with a #10 blade. I then dissected down to the underlying subcutaneous tissue until arriving at the prerectal fascia. The fascia was then nicked with the scalpel bilaterally. The fascial incisions were then carried laterally with Basurto scissors. Attention was then turned to the superior aspect of the incision which was grasped with kochers and tented up away from the underlying rectus abdominis muscles. The muscles were then dissected away from the fascia manually, and later with Basurto scissors. Attention was then turned to the inferior aspect of the incision, and the fascia was dissected away from the underlying muscle in similar fashion. The rectus abdominis muscles were then spread manually. The peritoneum was entered manually. Excellent visualization of the uterus was noted. A lower transverse uterine incision was then made with a #10 blade. Upon arriving at the intrauterine cavity, the uterine incision was then extended manually. The was noted to be in vertex position. The baby was delivered without difficulty. There was no meconium. There was no nuchal cord. The cord was cut and clamped. The baby was then handed to the waiting nurse. The placenta was removed intact. The uterus was externalized. The intrauterine cavity was cleansed of any remaining debris. The uterine incision was reapproximated in 2 layers. The first layer was performed with 0 Vicryl in a running locked stitch. The second layer was an imbricating stitch also using 0 Vicryl. The uterus was replaced into the abdomen. The peritoneum was then irrigated with warm saline. I reexamined the uterine incision and found it to be hemostatic. The rectus abdominis muscles were then reapproximated using 0 Vicryl in a running stitch. The fascia was then reapproximated using 0 Vicryl in running stitch. The subcutaneous tissue was then reapproximated using with 0 Vicryl in a running stitch. The skin was reapproximated using addie. A sterile dressing was placed. All counts were correct x2. Both the mother and baby were in stable condition.
[2023-02-26] MEDS: ondansetron 2 mg/ML SDV 2 mL 4 MG IVP (11:43)
[2023-02-26] MEDS: dextrose 5%-lactated ringers 1,000 ML 125 ML IV (11:44)
[2023-02-26] MEDS: ketorolac 30 mg/mL INJ IVP (15:13)
--- NOTE | 2023-02-26 16:16 | ANE.PACU2 ---
Inpatient post-anesthesia follow up: Airway intact: Yes Vital signs: Temperature 97.0 F Pulse Rate 65 Respiratory Rate 16 Blood Pressure 108/57 Pulse Oximetry 96 Oxygen Delivery Me thod Room Air Oxygen Flow Rate Fraction of Inspir ed Oxygen Hydration adequate: Yes Nausea and vomiting: No Pain level: 2 Mental status: Baseline
[2023-02-26] MEDS: docusate sodium 100 mg Capsule PO (18:30)
[2023-02-26 20:25] LABS: Hematocrit 35.3 % (37.0-47.0); Hemoglobin 11.4 g/dL (11.5-15.3); Mean Corpuscular HGB Conc 32.3 g/dL (30.0-36.0); Mean Corpuscular Hemoglobin 27.8 pg (28.0-34.0); Mean Corpuscular Volume 86.1 fl (81-99); Mean Platelet Volume 10.3 fL (7.4-10.4); Platelet Count 186 10^3/cmm (130-400); Red Cell Distribution Width 13.4 % (12.1-15.1); White Blood Count 12.6 10^3/uL (4.0-10.0)
[2023-02-26] MEDS: HYDROcodone-acetaminophen 5-325 mg Tablet PO (23:31)
[2023-02-27 01:55] VITALS: BP 102/56; PULSE 70
[2023-02-27 04:20] VITALS: BP 108/56; PULSE 78; TEMP 36
[2023-02-27] MEDS: HYDROcodone-acetaminophen 5-325 mg Tablet PO ×3 (05:39→14:02)
--- NOTE | 2023-02-27 06:35 | P.DS_ITS ---
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 The C- section was unremarkable. Her course has also been unremarkable. She has breast-fed well. Her bleeding has been minimal. She passed gas and has tolerated a regular diet without difficulty. She has been ambulating well. Her pain has been reasonably well controlled. There have been no concerns. Information Peripartum Data: Delivery Method: Physical Exam Narrative: She is in no acute distress Lungs are clear auscultation bilaterally Her heart has a regular rate and rhythm Her fundus is below the umbilicus and firm Her dressing is clean, dry and intact Her extremities have trace edema Urinary Catheter Management: Srinivasan: Cath Placed During This Visit: yes Reason for Continuing Indwelling Catheter: Perioperative Use in Selected Surgeries Urinary Catheter Date of Insertion: 02/26/23 Urinary Catheter Time of Insertion: 07:10 Discharge Data Studies Completed and Pending Laboratory Results WBC 12.6 10^3/uL (4.0-10.0) H 02/26/23 20:10 RBC 4.10 10^6/uL (4.1-5.3) 02/26/23 20:10 Hgb 11.4 g/dL (11.5-15.3) L 02/26/23 20:10 Hct 35.3 % (37.0-47.0) L 02/26/23 20:10 MCV 86.1 fl (81-99) 02/26/23 20:10 MCH 27.8 pg (28.0-34.0) L 02/26/23 20:10 MCHC 32.3 g/dL (30.0-36.0) 02/26/23 20:10 RDW 13.4 % (12.1-15.1) 02/26/23 20:10 Plt Count 186 10^3/cmm (130-400) 02/26/23 20:10 MPV 10.3 fL (7.4-10.4) 02/26/23 20:10 Neut % (Auto) 71.2 % 02/26/23 05:36 Lymph % (Auto) 17.2 % 02/26/23 05:36 [place] % (Auto) 8.3 % 02/26/23 05:36 Eos % (Auto) 1.9 % 02/26/23 05:36 Baso % (Auto) 0.5 % 02/26/23 05:36 Neut # (Auto) 6.86 10^3/uL (1.8-7.7) 02/26/23 05:36 Lymph # (Auto) 1.7 10^3/uL (0.8-4.8) 02/26/23 05:36 [place] # (Auto) 0.8 10^3/uL (0.2-0.9) 02/26/23 05:36 Eos # (Auto) 0.2 10^3/uL (0.0-0.8) 02/26/23 05:36 Baso # (Auto) 0.1 10^3/uL (0.0-0.1) 02/26/23 05:36 Nucleated RBC % (auto) 0 % 02/26/23 05:36 Nucleated RBCs # 0.0 /100WBC 02/26/23 05:36 Vitals Last Vital Signs Temp 96.8 F L 02/27/23 04:20 Pulse 78 02/27/23 04:20 Resp 16 02/26/23 21:57 BP 108/56 02/27/23 04:20 Pulse Ox 96 02/26/23 08:30 O2 Del Method Room Air 02/26/23 21:57 Discharge Plan Discharge Patient Disposition: Home Prescriptions: New ibuprofen 800 mg Tablet 800 mg PO TID Qty: 45 0RF hydrocodone-acetaminophen 5-325 mg Tablet 1 tab PO Q4H PRN (Reason: Moderate To Severe Pain) Qty: 28 0RF docusate sodium 100 mg Capsule 100 mg PO BID Qty: 14 0RF Continued -U 106.5-1 mg Capsule 1 cap PO BREAKFAST Qty: 90 2RF escitalopram oxalate 5 mg Tablet 5 mg PO DAILY Discharge Orders: Discharge Order (Routine); Ordered 02/27/23 Ordered By: Reji Lindquist Referrals: Reji Lindquist MD [Primary Care Provider] - 03/02/23 Discharge Diet: Usual diet Discharge Activity: Limit activity as instructed Patient Instructions: Opioid Safety 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
[2023-02-27] MEDS: prenatal vitamin Capsule 1 CAP PO (08:26)
[2023-02-27] MEDS: docusate sodium 100 mg Capsule PO (08:26)
[2023-02-27] MEDS: escitalopram 10 mg Tablet 5 MG PO (09:13)
[2023-02-27 10:04] VITALS: BP 122/71; PULSE 86; TEMP 36
[2023-02-27 11:00] VITALS: BP 122/71; PULSE 86; TEMP 36
[2023-02-27] MEDS: simethicone 80 mg Chew PO (11:47)
[2023-02-27 14:04] VITALS: BP 152/84; PULSE 108; TEMP 35.9
[2023-02-27 14:17] VITALS: BP 152/84; PULSE 108; TEMP 35.9
== END 2023-02-27 14:17 | disposition home or self-care (01) | DRG 788 ==
PROVIDERS: Admitting Provider Family Medicine; PCP Family Medicine; Visit Provider Family Medicine
PROC: 10D00Z1 Extraction of Products of Conception, Low, Open Approach (ICD-10-PCS; CPT 59514; principal; 2023-02-26 07:00)
DX: O34.211 Maternal care for low transverse scar from previous cesarean delivery (principal); Z3A.39 39 weeks gestation of pregnancy; Z37.0 Single live birth; O99.344 Other mental disorders complicating childbirth; F41.8 Other specified anxiety disorders
CPT/HCPCS: 12345; 36415; 51702; 59025; 59409; 85025; 85027; 96374; 96376; 98960; J1885; J2274; J2370; J2405; J2590; J2765; J3490; J7120; J7121

== ENCOUNTER 2024-01-02 13:03 | Emergency (ER) | payer BC, SELFPAY ==
--- NOTE | 2024-01-02 13:04 | ECG_ITS ---
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 Measurements Intervals [employer] Rate: 86 P: 0 WA: 0 QRS: 101 QRSD: 101 T: -1 QT: 366 QTc: 439 Interpretive Statements ATRIAL FIBRILLATION RIGHT AXIS DEVIATION [QRS AXIS > 100] NONSPECIFIC T-WAVE ABNORMALITY No previous ECG available for comparison Electronically Signed On 01-02-2024 16:15:09 CDT by Cal Vasquez M.D. [id number]
[2024-01-02 13:08] VITALS: BP 126/84; PULSE 92; RESP 16; TEMP 37.2; O2SAT 97
--- NOTE | 2024-01-02 13:31 | ED_ITS ---
HPI - Chest Pain 2 General: Chief Complaint: Chest Pain Stated Complaint: chest pain, sob Time Seen by Provider: 01/02/24 13:29 History of Present Illness: 28-year-old female comes in today with s ome chest discomfort that is mid chest to the mid epigastric that radiates to her back. Patient reports pain started about 1140 this morning. Patient appears nontoxic. Patient taking a hydrocodone at 1230 for her back pain and reports some mild improvement since. Patient does not take hydrocodone routinely. Patient has a history of a spinal fusion due to scoliosis at the age of 13. Patient is had 2 other surgeries for pregnancies which were 2 C-sections. Patient denies any other abdominal surgeries. Patient last meal was at 1900. Patient reports some light cardio and weightlifting this morning. Patient is had 2 pregnancies with 2 live births. Patient denies any other chronic medical problems. Patient appears nontoxic. Associated symptoms: Reports nausea; Deny dyspnea, fever(s) or vomiting Risk Factors: Coronary artery disease risk factors: none Thoracic aortic dissection risk factors: none Review of Systems 2 General: Reports: 10 or more systems reviewed and unremarkable except in HPI and below Const: Reports: malaise; Denies: fever(s) Card: Reports: chest pain Resp: Denies: dyspnea GI: Reports: nausea; Denies: vomiting, diarrhea or constipation : Denies: difficulty voiding Musc: Reports: back pain Skin/Breast: Denies: rash Neuro: Denies: headache(s) Psych: Denies: anxiety or depression PFSH ED 2 PFSH: Medical History (Updated 01/02/24 @ 14:32 by ELÍAS Garcia) 39 weeks gestation of Surgical History (Updated 02/28/23 @ 00:01 by ISAAK Pulliam) History of Female Reproductive History: Date of last menstrual period: 01/02/24 Physical Exam 2 Const: COMMON NORMALS: alert HENMT: COMMON NORMALS: normocephalic HEAD & SCALP: normocephalic MOUTH: Normal oral and palatal mucosa present Neck/C-Spine: COMMON NORMALS: full ROM Lymph: LYMPHATIC: No lymphadenopathy Chest: COMMONS NORMALS: normal palpation of entire chest wall Resp: COMMON NORMALS: normal respiratory effort and clear to auscultation bilaterally AUSCULTATION: clear to auscultation bilaterally Cardio: COMMON NORMALS: regular rate, regular rhythm and No murmurs present (Cardio) RATE: regular rate RHYTHM: regular rhythm GI: COMMON NORMALS: Soft to palpation and non-tender PALPATION: Yes Soft to palpation : COMMON NORMALS: Yes no CVA tenderness BLADDER/KIDNEY EXAM: Yes no CVA tenderness Back/Pelvis: COMMON NORMALS: no CVA tenderness Extremity: COMMON NORMALS: normal to inspection and full ROM Neuro: SENSORIUM/ORIENTATION: Yes alert Psych: COMMON NORMALS: cooperative Skin: COMMON NORMALS: turgor normal GENERAL SKIN EXAM: turgor normal Course 2 Vital Signs: Vital signs: Vital Signs Temperature 98.9 F 01/02/24 14:38 Pulse Rate 89 01/02/24 14:38 Respiratory Rate 16 01/02/24 14:38 Blood Pressure 127/89 01/02/24 14:38 Pulse Oximetry 99 01/02/24 14:38 Oxygen Delivery Me thod Room Air 01/02/24 14:01 MDM - Chest Pain Medical Decision Making 28-year-old female comes in today for complaints of midsternal chest pain radiating to her back started about 1130 this morning. Patient appears nontoxic. Skin is warm and dry color is pink. Respirations are even. Lungs are clear to auscultation. Abdomen soft nontender. No chest wall tenderness. Patient has some paraspinous muscle tenderness in the mid back with muscle tightening. Patient moves all extremities well. Skin is warm and dry. Vital signs are normal. EKG shows a sinus rhythm without any sign of STEMI. Differential diagnosis includes not limited to muscle strain, gallbladder disease, unlikely ACS, unlikely PE, costochondritis, pancreatitis, intervertebral disc disease, facet arthropathy. Laboratory values were unremarkable. CBC and CMP were normal. Urinalysis was normal. Chest x-ray noted no abnormalities. Ultrasound the gallbladder was normal. Patient pain has improved. Reviewed exam with patient offered cardiology follow-up patient wanted to talk to her primary care more about further evaluation. Recommended light activity gentle stretching for concern of possible musculoskeletal pain. Recommend return to the ER for signs and symptoms of illness or worsening pain. Patient reported understanding agreed to plan. Lab Data 01/02/24 13:42 01/02/24 13:42 Radiology Impressions Chest X-Ray 01/02/24 13:48 IMPRESSION: No acute cardiopulmonary disease. Laboratory Results WBC 10.44 10^3/uL (3.29-11.43) 01/02/24 13:42 RBC 4.93 10^6/uL (3.85-5.65) 01/02/24 13:42 Hgb 14.10 g/dL (11.27-16.99) 01/02/24 13:42 Hct 42.5 % (36-47) 01/02/24 13:42 MCV 86.2 fl (85-98) 01/02/24 13:42 MCH 28.6 pg (27-33) 01/02/24 13:42 MCHC 33.2 g/dL (30-55) 01/02/24 13:42 RDW 12.3 % (12.1-15.1) 01/02/24 13:42 Plt Count 219 10^3/cmm (157-399) 01/02/24 13:42 MPV 10.2 fL (7.4-10.4) 01/02/24 13:42 Neut % (Auto) 82.2 % 01/02/24 13:42 Lymph % (Auto) 9.2 % 01/02/24 13:42 [place] % (Auto) 6.7 % 01/02/24 13:42 Eos % (Auto) 1.1 % 01/02/24 13: Baso % (Auto) 0.6 % 01/02/24 13: Neut # (Auto) 8.59 10^3/uL (1.8-7.7) H 01/02/24 13:42 Lymph # (Auto) 1.0 10^3/uL (0.8-4.8) 01/02/24 13:42 [place] # (Auto) 0.7 10^3/uL (0.2-0.9) 01/02/24 13:42 Eos # (Auto) 0.1 10^3/uL (0.0-0.8) 01/02/24 13:42 Baso # (Auto) 0.1 10^3/uL (0.0-0.1) 01/02/24 13:42 Nucleated RBC % (auto) 0 % 01/02/24 13: Nucleated RBCs # 0.0 /100WBC 01/02/24 13:42 D-Dimer <= 0.27 ug/mLFEU (0-0.59) 01/02/24 13:42 Sodium 139 mmol/L (136-145) 01/02/24 13:42 Potassium 3.8 mmol/L (3.5-5.1) 01/02/24 13:42 Chloride 103 mmol/L (98-107) 01/02/24 13:42 Carbon Dioxide 23 mmol/L (22-29) 01/02/24 13:42 Anion Gap 16.8 (5-19) 01/02/24 13:42 BUN 13 mg/dL (6-20) 01/02/24 13:42 Creatinine 0.8 mg/dL (0.5-0.9) 01/02/24 13:42 GFR Calculation 85.4 mL/min (90-130) L 01/02/24 13:42 Glucose 91 mg/dL (65-115) 01/02/24 13:42 Calculated Osmolality 288 mOsm/kg (285-295) 01/02/24 13:42 Calcium 8.7 mg/dL (8.5-10.5) 01/02/24 13:42 Total Bilirubin 0.5 mg/dL (0.15-1.2) 01/02/24 13:42 AST 20 U/L (0-32) 01/02/24 13:42 ALT 14 U/L (0-33) 01/02/24 13:42 Alkaline Phosphatase 63 U/L (35-105) 01/02/24 13:42 Troponin T Baseline < 6 ng/L (0-10) 01/02/24 13:42 C-Reactive Protein 3.0 mg/L (0.0-4.9) 01/02/24 13:42 Total Protein 7.0 g/dL (6.6-8.7) 01/02/24 13:42 Albumin 4.4 g/dL (3.5-5.2) 01/02/24 13:42 Globulin 2.6 g/dL (1.3-4.6) 01/02/24 13:42 Lipase 35 U/L (13-60) 01/02/24 13:42 Urine Color Yellow (Yellow) 01/02/24 13:44 Urine Appearance Clear (CLEAR) 01/02/24 13:44 Urine pH 5 (5-7) 01/02/24 13:44 Ur Specific [place] 1.005 (1.005-1.030) 01/02/24 13:44 Urine Protein Neg (Negative) 01/02/24 13:44 Urine Glucose (UA) Norm (Normal) 01/02/24 13:44 Urine Ketones Negative (Negative) 01/02/24 13:44 Urine Blood Neg (Negative) 01/02/24 13:44 Urine Nitrate Negative (Negative) 01/02/24 13:44 Urine Bilirubin Neg (Negative) 01/02/24 13:44 Urine Urobilinogen Norm mg/dL (Negative) 01/02/24 13:44 Ur Leukocyte Esterase Negative (Negative) 01/02/24 13:44 All radiology interpretation(s) finalized by discharge EKG Data EKG 1: EKG interpretation date: 01/02/24 EKG interpretation time: 13:06 Prior EKG tracings: not available for review Interpretation: EKG shows a sinus rhythm with a regular rate at [address] elevation or ectopy is noted. No prior exam was available for comparison. Dr. Guillory had reviewed the EKG and noted no STEMI and a NSR. Computer generated interpretation: Atrial fibrillation, right axis deviation, nonspecific T wave abnormality, abnormal EKG, unconfirmed report. Discharge Plan Discharge Patient Disposition: Home Clinical Impression: Atypical chest pain Condition: Stable Prescriptions: No Action berberine-herbal comb no.18 Capsule 1 cap PO DAILY Discharge Orders: Discharge ED (Routine); Ordered 01/02/24 Ordered By: Everette Weldon Referrals: Reji Lindquist MD [Primary Care Provider] - Discharge Diet: Usual diet Discharge Activity: Increase activity as tolerated Patient Instructions: Chest Pain (ED) Activity Restrictions/Additional Instructions: Your exam today shows no abnormalities in the heart or significant abnormalities in your laboratory values. Chest x-ray was normal and ultrasound of the gallbladder was normal. I believe that this time it may be related to more musculoskeletal pain but I would recommend follow-up with primary care to discuss any further testing or evaluation. Return to ER for worsening symptoms such as high fever, increasing shortness of breath, worsening chest pain, or new concerns. Coding Level of Care Code ED Stock Layer for Zacarias Crisostomo
--- NOTE | 2024-01-02 13:48 | XRR_ITS ---
PROCEDURE INFORMATION: Exam: XR Chest Exam date and time: 01/02/2024 2:00 PM Age: 28 years old Clinical indication: Pain; Angina pectoris; Additional info: Chest pain TECHNIQUE: Imaging protocol: Radiologic exam of the chest. Views: 1 view. COMPARISON: No relevant prior studies available. FINDINGS: Lungs: Unremarkable. No consolidation. Pleural spaces: Unremarkable. No pleural effusion. No pneumothorax. Heart/Mediastinum: Unremarkable. No cardiomegaly. Bones/joints: Aldana rods. Intact hardware. XR/XR chest 1V portable [id number] IMPRESSION: No acute cardiopulmonary disease.
--- NOTE | 2024-01-02 13:48 | US_ITS ---
WS: [id number] RIGHT UPPER QUADRANT ULTRASOUND HISTORY: chest pain, radiating to back COMPARISON: None available. Liver: 15.1 cm in length. Normal size liver and echogenicity. No bile duct dilatation or mass. Portal Vein: Normal hepatopetal flow with monophasic waveform. Gallbladder: Normally distended gallbladder with no stones or wall thickening. CBD: 0.3 cm Pancreas: Normal size and echogenicity. Right kidney: 9.8 cm in length. Normal size and echogenicity. No hydronephrosis or mass. Aorta and IVC: Unremarkable abdominal aorta and IVC. No ascites. IMPRESSION: Normal RIGHT upper quadrant ultrasound.
[2024-01-02 13:52] LABS: Basophils # 0.1 10^3/uL (0.0-0.1); Basophils % 0.6 %; Eosinophils # 0.1 10^3/uL (0.0-0.8); Eosinophils % 1.1 %; Hematocrit 42.5 % (36-47); Lymphocytes % 9.2 %; Mean Corpuscular HGB Conc 33.2 g/dL (30-55); Mean Corpuscular Hemoglobin 28.6 pg (27-33); Mean Corpuscular Volume 86.2 fl (85-98); Mean Platelet Volume 10.2 fL (7.4-10.4); Monocytes # 0.7 10^3/uL (0.2-0.9); Monocytes % 6.7 %; Neutrophils # 8.59 10^3/uL (1.8-7.7); Neutrophils % 82.2 %; Nucleated Red Blood Cells % 0 %; Platelet Count 219 10^3/cmm (157-399); Red Blood Count 4.93 10^6/uL (3.85-5.65); Red Cell Distribution Width 12.3 % (12.1-15.1); White Blood Count 10.44 10^3/uL (3.29-11.43)
[2024-01-02 13:59] LABS: Add Urine Microscopic? NO; Charge for UA Resulting for Rev
[2024-01-02 14:01] VITALS: BP 127/89; PULSE 89; RESP 16; O2SAT 99
[2024-01-02 14:03] LABS: D Dimer <= 0.27 ug/mLFEU (0-0.59)
[2024-01-02 14:08] LABS: Alanine Aminotransferase 14 U/L (0-33); Albumin Level 4.4 g/dL (3.5-5.2); Alkaline Phosphatase 63 U/L (35-105); Anion Gap 16.8 (5-19); Aspartate Amino Transferase 20 U/L (0-32); Blood Urea Nitrogen 13 mg/dL (6-20); Calcium 8.7 mg/dL (8.5-10.5); Carbon Dioxide 23 mmol/L (22-29); Chloride 103 mmol/L (98-107); Creatinine Clr Calc Pharmacy 90.9471; Globulin 2.6 g/dL (1.3-4.6); Glomerular Filtration Rate 85.4 mL/min (90-130); Glucose 91 mg/dL (65-115); Lipase 35 U/L (13-60); Osmolality Calculated 288 mOsm/kg (285-295); Potassium 3.8 mmol/L (3.5-5.1); Sodium 139 mmol/L (136-145); Total Bilirubin 0.5 mg/dL (0.15-1.2)
[2024-01-02 14:08] LABS: Bilirubin Urine Neg (Negative); Blood Urine Neg (Negative); Glucose Urine UA Norm (Normal); Ketones Urine Negative (Negative); Leukocyte Esterase Urine Negative (Negative); Nitrate Urine Negative (Negative); Protein Urine Neg (Negative); Specific Gravity, Urine 1.005 (1.005-1.030); Urine Appearance Clear (CLEAR); Urine Color Yellow (Yellow); Urobilinogen Urine Norm (Negative); pH Urine 5 (5-7)
[2024-01-02 14:13] LABS: Troponin(5th) Baseline < 6 ng/L (0-10)
[2024-01-02 14:38] VITALS: BP 127/89; PULSE 89; RESP 16; TEMP 37.2; O2SAT 99
== END 2024-01-02 14:39 | disposition home or self-care (01) ==
PROVIDERS: Emergency Provider Nurse Practitioner Family; PCP Family Medicine
DX: R07.89 Other chest pain (principal)
CPT/HCPCS: 36415; 71045; 76705; 80053; 81003; 83690; 84484; 85025; 85378; 86140; 93005; 99285